=== PATIENT | female | born 1995 | race Caucasian/White ===

== ENCOUNTER 2017-11-25 18:44 | Emergency (ER) | payer OTHER ==
[2017-11-25 19:29] VITALS: BP 92/66
--- NOTE | 2017-11-25 19:46 | UC ---
Skin Complaint HPI - HPI Summary HPI Summary: Patient found a tick on her neck one week ago and is concerned that she has continued redness - History of Current Complaint Hx Obtained From: Patient Hx Last Menstrual Period: November 02, 2017 ?: No Onset/Duration: Sudden Onset Pain Intensity: 0 Pain Scale Used: 0-10 Numeric Location: Discrete Character: Redness Aggravating Factor(s): Nothing Alleviating Factor(s): Nothing Associated Signs & Symptoms: Positive: Negative Related History: Possible Reaction to: Insect <Marilynn Machado - Last Filed: 12/06/17 15:42> <Cherry Ibarra - Last Filed: 12/08/17 07:26> - History of Current Complaint Chief Complaint: UCGeneralIllness Time Seen by Provider: 11/25/17 19:36 Stated Complaint: TICK BITE - Allergy/Home Medications Allergies/Adverse Reactions: Allergies Allergy/AdvReac Type Severity Reaction Status Date / Time Penicillins Allergy Rash Verified 11/25/17 19:23 Home Medications: Home Medications Bcp 1 tab PO DAILY 11/25/17 [History] Review of Systems Constitutional: Negative Skin: Other - erythema on neck Eyes: Negative ENT: Negative Respiratory: Negative Cardiovascular: Negative Gastrointestinal: Negative Genitourinary: Negative Motor: Negative Neurovascular: Negative Musculoskeletal: Negative Neurological: Negative Psychological: Negative Is Patient Immunocompromised?: No All Other Systems Reviewed And Are Negative: Yes <Marilynn Machado - Last Filed: 12/06/17 15:42> PMH/Surg Hx/FS Hx/Imm Hx Previously Healthy: Yes - Surgical History Surgical History: Yes Surgery Procedure, Year, and Place: TONSILLECTOMY - Family History Known Family History: Positive: None - Social History Occupation: Employed Full-time Lives: With Family Alcohol Use: Occasionally Substance Use Type: None Smoking Status (MU): Light Every Day Tobacco Smoker Length of Time of Smoking/Using Tobacco: 1/2 ppd - Immunization History Vaccination Up to Date: Yes <Marilynn Machado - Last Filed: 12/06/17 15:42> Physical Exam Triage Information Reviewed: Yes Appearance: Well-Appearing, No Pain Distress, Well-Nourished Vital Signs: Initial Vital Signs Temp 98.8 F 11/25/17 19:25 Pulse 72 11/25/17 19:25 Resp 18 11/25/17 19:25 BP 92/66 11/25/17 19:25 Pulse Ox 100 11/25/17 19:25 Vital Signs Reviewed: Yes Eye Exam: Normal Eyes: Positive: Conjunctiva Clear ENT Exam: Normal ENT: Positive: Normal ENT inspection, Hearing grossly normal, Pharynx normal, TMs normal, Uvula midline. Negative: Nasal congestion, Trismus, Muffled voice, Hoarse voice, Sinus tenderness Dental Exam: Normal Neck exam: Normal Neck: Positive: Supple, Nontender, No Lymphadenopathy, Other: - circular erythema on right side of neck with central clearing Respiratory Exam: Normal Respiratory: Positive: Chest non-tender, Lungs clear, Normal breath sounds, No respiratory distress, No accessory muscle use Cardiovascular Exam: Normal Cardiovascular: Positive: RRR, No Murmur, Pulses Normal, Brisk Capillary Refill Musculoskeletal Exam: Normal Musculoskeletal: Positive: Strength Intact, ROM Intact, No Edema Neurological Exam: Normal Neurological: Positive: Alert, Muscle Tone Normal Psychological Exam: Normal Skin: Positive: Other - erythema on right side of neck as described <Marilynn Machado - Last Filed: 12/06/17 15:42> Vital Signs: Initial Vital Signs Temp 98.8 F 11/25/17 19:25 Pulse 72 11/25/17 19:25 Resp 18 11/25/17 19:25 BP 92/66 11/25/17 19:25 Pulse Ox 100 11/25/17 19:25 <Cherry Ibarra - Last Filed: 12/08/17 07:26> Course/Dx - Course Course Of Treatment: doxycycline for 14 days follow with pcp/Dr apodaca. Note additional signs/symptoms of Lyme to report to PCP - Diagnoses Provider Diagnoses: Erythema Migranes right neck,nicotine dependant <Marilynn Machado - Last Filed: 12/06/17 15:42> Discharge - Sign-Out/Discharge Documenting (check all that apply): Discharge/Admit/Transfer - Billing Disposition and Condition Condition: STABLE Disposition: Home <Marilynn Machado - Last Filed: 12/06/17 15:42> - Billing Disposition and Condition Condition: STABLE Disposition: Home <Cherry Ibarra - Last Filed: 12/08/17 07:26> - Discharge Plan Condition: Stable Disposition: HOME Prescriptions: DOXYcycline CAP(*) [DOXYcycline 100MG CAP(*)] 100 mg PO BID 14 Days #28 cap Patient Education Materials: Lyme Disease (ED) Referrals: No Primary Care Phys,NOPCP [Primary Care Provider] - Kennedy OZUNA,Pranav Gunter [Medical Doctor] - 5 Days Attestation Statement User Type: Provider - I was available for consult. This patient was seen by the BLAYNE. The patient was not presented to, seen by, or examined by me. -Kenroy <Cherry Ibarra - Last Filed: 12/08/17 07:26>
== END 2017-11-25 20:20 | disposition home or self-care (01) ==
LOC: UCEAST 18:44
DX: A26.0 Cutaneous erysipeloid (principal); Z88.0 Allergy status to penicillin; F17.210 Nicotine dependence, cigarettes, uncomplicated
CPT/HCPCS: 86618; 99211; G0463

== ENCOUNTER 2018-01-26 14:34 | Emergency (ER) | payer MEDICAID, OTHER ==
[2018-01-26 14:51] VITALS: BP 124/75
--- NOTE | 2018-01-26 14:56 | UC ---
Throat Pain/Nasal Vic HPI - HPI Summary HPI Summary: 4 days of cough sneezing,nasal congestion, ear ache (bilateral) sore throat--no fevers - History of Current Complaint Chief Complaint: UCGeneralIllness Stated Complaint: SORE THROAT EAR PAIN RESP ISSUE RASH Time Seen by Provider: 01/26/18 14:42 Hx Obtained From: Patient Hx Last Menstrual Period: [id number] ?: No Onset/Duration: Sudden Onset, Lasting Days - 4 Pain Intensity: 6 Pain Scale Used: 0-10 Numeric Cough: Nonproductive Associated Signs & Symptoms: Positive: Nasal Discharge. Negative: Hoarseness, Fever - Allergies/Home Medications Allergies/Adverse Reactions: Allergies Allergy/AdvReac Type Severity Reaction Status Date / Time Penicillins Allergy Rash Verified 01/26/18 14:50 PMH/Surg Hx/FS Hx/Imm Hx Previously Healthy: Yes - Surgical History Surgical History: Yes Surgery Procedure, Year, and Place: TONSILLECTOMY - Family History Known Family History: Positive: None - Social History Occupation: Employed Full-time Lives: With Family Alcohol Use: Occasionally Substance Use Type: None Smoking Status (MU): Light Every Day Tobacco Smoker Length of Time of Smoking/Using Tobacco: 1/2 ppd Have You Smoked in the Last Year: Yes Cessation Counseling: Counseled 3+Min - 10 Min - Immunization History Vaccination Up to Date: Yes Review of Systems Constitutional: Negative Skin: Negative Eyes: Negative ENT: Sore Throat, Ear Ache, Nasal Discharge Respiratory: Cough Cardiovascular: Negative Gastrointestinal: Negative Genitourinary: Negative Motor: Negative Neurovascular: Negative Musculoskeletal: Negative Neurological: Negative Psychological: Negative Is Patient Immunocompromised?: No All Other Systems Reviewed And Are Negative: Yes Physical Exam Triage Information Reviewed: Yes Appearance: Well-Appearing, No Pain Distress, Well-Nourished Vital Signs: Initial Vital Signs Temp 98.6 F 01/26/18 14:43 Pulse 97 01/26/18 14:43 Resp 16 01/26/18 14:43 BP 124/75 01/26/18 14:43 Pulse Ox 99 01/26/18 14:43 Vital Signs Reviewed: Yes Eye Exam: Normal Eyes: Positive: Conjunctiva Clear ENT Exam: Normal ENT: Positive: Normal ENT inspection, Hearing grossly normal, Pharynx normal, Nasal congestion, Nasal drainage, TMs normal, Uvula midline. Negative: Tonsillar swelling, Tonsillar exudate, Trismus, Muffled voice, Hoarse voice, Dental tenderness, Sinus tenderness Dental Exam: Normal Neck exam: Normal Neck: Positive: Supple, Nontender, No Lymphadenopathy Respiratory Exam: Normal Respiratory: Positive: Chest non-tender, Lungs clear, Normal breath sounds, No respiratory distress Cardiovascular Exam: Normal Cardiovascular: Positive: RRR, No Murmur, Pulses Normal, Brisk Capillary Refill Musculoskeletal Exam: Normal Musculoskeletal: Positive: Strength Intact, ROM Intact, No Edema Neurological Exam: Normal Neurological: Positive: Alert, Muscle Tone Normal Psychological Exam: Normal Skin Exam: Normal Diagnostics - Laboratory Diagnostic Studies Completed/Ordered: RST (-) Throat Pain/Nasal Course/Dx - Course Assessment/Plan: flonase nasal spray, zyrtec D tylenol ibuprofen follow with pcp prn - Differential Dx/Diagnosis Provider Diagnoses: acute rhinosinusitis Discharge - Sign-Out/Discharge Documenting (check all that apply): Patient Departure - Discharge Plan Condition: Stable Disposition: HOME Prescriptions: Fluticasone NASAL SPRAY 50MCG* [Flonase NASAL SPRAY 50MCG*] 2 spray BOTH NARES DAILY #1 btl Patient Education Materials: Cetirizine/Pseudoephedrine (By mouth), How to Stop Smoking (ED), Rhinosinusitis (ED), How to Use Nasal [place] (ED) Referrals: [facility] [Outside] - If Needed - Billing Disposition and Condition Condition: STABLE Disposition: Home Attestation Statement User Type: Provider - I was available for consult. This patient was seen by the BLAYNE. The patient was not presented to, seen by, or examined by me. -Kenroy
== END 2018-01-26 15:25 | disposition home or self-care (01) ==
LOC: UCEAST 14:34
DX: J01.90 Acute sinusitis, unspecified (principal); R05 Cough; F17.210 Nicotine dependence, cigarettes, uncomplicated; Z88.0 Allergy status to penicillin
CPT/HCPCS: 87651; 99212; G0463

== ENCOUNTER 2018-04-06 19:00 | Emergency (ER) | payer MEDICAID, OTHER ==
[2018-04-06 20:14] VITALS: BP 115/79
[2018-04-06] MEDS ORDERED: ceFUROXime TAB(*) 250 MG PO ONE ×2 (20:22)
--- NOTE | 2018-04-06 20:28 | UC ---
Ear Complaint HPI - HPI Summary HPI Summary: The patient is a 23-year-old female with a five-day history of nasal congestion and cough. He now has bilateral ear pain. Her pain is 7 out of 10. Denies any fever. She gets a mild rash with penicillins. - History of Current Complaint Chief Complaint: UCRespiratory Stated Complaint: EAR PAIN Time Seen by Provider: 04/06/18 20:17 Hx Obtained From: Patient Hx Last Menstrual Period: one week ago Onset/Duration: Gradual Onset, Lasting Days Severity Initially: Mild Severity Currently: Moderate Pain Intensity: 7 Pain Scale Used: 0-10 Numeric Associated Signs/Symptoms: Positive: Hearing Loss, URI Symptoms Related History: Prior ENT Surgery - PETs - Allergies/Home Medications Allergies/Adverse Reactions: Allergies Allergy/AdvReac Type Severity Reaction Status Date / Time Penicillins Allergy Rash Verified 04/06/18 20:14 PMH/Surg Hx/FS Hx/Imm Hx Previously Healthy: Yes - Surgical History Surgical History: Yes Surgery Procedure, Year, and Place: TONSILLECTOMY - Family History Known Family History: Positive: Hypertension - Social History Alcohol Use: Occasionally Substance Use Type: None Smoking Status (MU): Light Every Day Tobacco Smoker Length of Time of Smoking/Using Tobacco: 1/2 ppd Have You Smoked in the Last Year: Yes - Immunization History Vaccination Up to Date: Yes Review of Systems Constitutional: Negative Skin: Negative Eyes: Negative ENT: Sore Throat, Nasal Discharge Respiratory: Negative Cardiovascular: Negative Gastrointestinal: Negative Genitourinary: Negative Motor: Negative Neurovascular: Negative Musculoskeletal: Negative Neurological: Negative Psychological: Negative All Other Systems Reviewed And Are Negative: Yes Physical Exam Triage Information Reviewed: Yes Appearance: Well-Appearing, No Pain Distress, Well-Nourished Vital Signs: Initial Vital Signs Temp 97.2 F 04/06/18 20:12 Pulse 102 04/06/18 20:12 Resp 18 04/06/18 20:12 BP 115/79 04/06/18 20:12 Pulse Ox 100 04/06/18 20:12 Vital Signs Reviewed: Yes Eyes: Positive: Conjunctiva Clear ENT: Positive: Nasal congestion, TM bulging, TM dull, Muffled voice. Negative: Hearing grossly normal, Nasal drainage, TMs normal, Hoarse voice Neck: Positive: Supple, Nontender, No Lymphadenopathy Respiratory: Positive: Lungs clear, Normal breath sounds, No respiratory distress, No accessory muscle use Cardiovascular: Positive: RRR, No Murmur Musculoskeletal: Positive: ROM Intact, No Edema Neurological: Positive: Alert Psychological Exam: Normal Skin Exam: Normal Ear Complaint Course/Dx - Differential Dx/Diagnosis Provider Diagnoses: BILATERAL OTITIS MEDIA. VIRAL URI Discharge - Sign-Out/Discharge Documenting (check all that apply): Patient Departure All imaging exams completed and their final reports reviewed: No Studies - Discharge Plan Condition: Stable Disposition: HOME Prescriptions: ceFUROXime TAB(*) [Ceftin TAB(*)] 250 mg PO BID #12 tab Patient Education Materials: Ear Infection (ED) Referrals: No Primary Care Phys,NOPCP [Primary Care Provider] - Additional Instructions: RECHECK IN 2 WEEKS IF HEARING NOT BACK TO NORMAL - Billing Disposition and Condition Condition: STABLE Disposition: Home
== END 2018-04-06 20:30 | disposition home or self-care (01) ==
LOC: UCEAST 19:00
DX: H66.90 Otitis media, unspecified, unspecified ear (principal); J06.9 Acute upper respiratory infection, unspecified; Z88.0 Allergy status to penicillin; F17.210 Nicotine dependence, cigarettes, uncomplicated
CPT/HCPCS: 99212; G0463

== ENCOUNTER 2018-11-02 15:44 | Emergency (ER) | payer OTHER ==
[2018-11-02 16:00] VITALS: BP 118/65
--- NOTE | 2018-11-02 16:03 | UC ---
Abdominal Pain Female HPI - HPI Summary HPI Summary: 23 yo female presents with central lower abdominal pain. She tells me that this pain began during intercourse 1 week ago with her boyfriend. They stopped intercourse and pain felt better, but was still present the next day. The day after her pain had resolved and she had intercourse again and pain returned. Pain has been persistent now for the last 4 days. She has not had intercourse during this time and says that pain is improving, but still present. Denies vaginal bleeding, discharge, rash, itching, dysuria, n/v, or flank pain. - History of Current Complaint Chief Complaint: UCAbdominalPain Stated Complaint: abdominal PAIN Time Seen by Provider: 11/02/18 16:03 Hx Obtained From: Patient Hx Last Menstrual Period: 10/11/18 Onset/Duration: Sudden Onset Severity Initially: Moderate Severity Currently: Moderate Pain Intensity: 6 Pain Scale Used: 0-10 Numeric Allergies/Adverse Reactions: Allergies Allergy/AdvReac Type Severity Reaction Status Date / Time Penicillins Allergy Rash Verified 11/02/18 16:00 Home Medications: Home Medications NK [No Home Medications Reported] 11/02/18 [History Confirmed 11/02/18] PMH/Surg Hx/FS Hx/Imm Hx - Additional Past Medical History Additional PMH: None - Surgical History Surgical History: Yes Surgery Procedure, Year, and Place: TONSILLECTOMY - Family History Known Family History: Positive: Hypertension - Social History Lives: With Family Alcohol Use: Occasionally Substance Use Type: None Smoking Status (MU): Light Every Day Tobacco Smoker Length of Time of Smoking/Using Tobacco: 1/2 ppd Have You Smoked in the Last Year: Yes - Immunization History Vaccination Up to Date: Yes Review of Systems All Other Systems Reviewed And Are Negative: Yes Constitutional: Positive: Negative Skin: Positive: Negative Respiratory: Positive: Negative Cardiovascular: Positive: Negative Gastrointestinal: Positive: Abdominal Pain Genitourinary: Positive: Negative Motor: Positive: Negative Neurological: Positive: Negative Psychological: Positive: Negative Physical Exam - Summary Physical Exam Summary: GENERAL: NAD. WDWN. No pain distress. SKIN: No rashes, sores, lesions, or open wounds. NECK: Supple. Nontender. No lymphadenopathy. CHEST: CTAB. No r/r/w. No accessory muscle use. Breathing comfortably and in no distress. CV: RRR. Without m/r/g. Pulses intact. Cap refill <2seconds ABDOMEN: Soft. NTTP. No distention or guarding. No CVA tenderness. Bowel sounds present NEURO: Alert. PSYCH: Age appropriate behavior. Triage Information Reviewed: Yes Vital Signs: Initial Vital Signs Temp 99.3 F 11/02/18 15:57 Pulse 74 11/02/18 15:57 Resp 18 11/02/18 15:57 BP 118/65 11/02/18 15:57 Pulse Ox 100 11/02/18 15:57 Laboratory Tests 11/02/18 11/02/18 16:19 16:21 POC Urine Color Yellow POC Urine Clarity Clear POC Urine pH 5.5 POC Ur Specif [place] 1.020 POC Urine Protein Negative POC Ur Glucose (UA) Negative POC Urine Ketones Trace A POC Urine Blood Negative POC Urine Nitrite Negative POC Urine Bilirubin Negative POC Urine Urobilinogen 0.2 POC U Leukocyte Esteras Trace A POC Ur Test Negative Vital Signs Reviewed: Yes Pelvic Exam: Positive: External Exam Normal, No Cerv. Motion Tender, No Masses, Discharge - thick white, Other - abrasion to cervix TTP. Exam assisted by Jf RAMSEY. Negative: Active Bleeding Abd Pain Female Course/Dx - Course Course Of Treatment: Discussed with pt that I believe her discomfort is related to possible BV vs yeast as well as some irritation to her cervix. I recommended starting flagyl and diflucan, but pt prefers to wait for cultures to return before starting treatment as her pain is improving with rest and refraining from intercourse. Affirm culture sent and will treat accordingly. - Differential Dx/Diagnosis Provider Diagnosis: Pelvic pain, Vaginal discharge Discharge - Sign-Out/Discharge Documenting (check all that apply): Patient Departure All imaging exams completed and their final reports reviewed: No Studies - Discharge Plan Condition: Stable Disposition: HOME Patient Education Materials: Yeast Infection (ED), Pelvic Pain (ED) Referrals: No Primary Care Phys,NOPCP [Primary Care Provider] - Additional Instructions: If you develop a fever, shortness of breath, chest pain, new or worsening symptoms - please call your PCP or go to the ED immediately. Based on your exam, it appears you may have a yeast infection. We took a sample during your exam and will call you with any abnormal results in the next day or two and treat you as needed. - Billing Disposition and Condition Condition: STABLE Disposition: Home
== END 2018-11-02 17:05 | disposition home or self-care (01) ==
LOC: UCEAST 15:44
DX: R10.2 Pelvic and perineal pain (principal); N89.8 Other specified noninflammatory disorders of vagina; N72 Inflammatory disease of cervix uteri; Z88.0 Allergy status to penicillin; F17.200 Nicotine dependence, unspecified, uncomplicated
CPT/HCPCS: 81003; 84702; 87086; 87480; 87510; 99211; G0463